=== PATIENT | male | born 1950 | race Caucasian/White ===

== ENCOUNTER 2016-12-16 20:10 | Emergency (ER) | payer MEDICARE, OTHER ==
[2016-12-16 20:36] LABS: BILIRUBIN,URINE NEGATIVE (NEGATIVE)
[2016-12-16 20:43] LABS: UA w/ MICROSCOPIC CHARGE YES
[2016-12-16 20:46] LABS: UR CULTURE IF IND NOT INDICATED; WBC,URINE 0-3 /HPF (0-3)
--- NOTE | 2016-12-16 20:47 | ED Physician Documentation ---
PD HPI ABD PAIN - Stated complaint Stated Complaint: SIDE PX - Chief complaint Chief Complaint: Abd Pain - History obtained from History obtained from: Patient - History of Present Illness Timing - onset: How many hours ago (6), Today Pain level max: 7 Pain level now: 7 Quality: Aching, Dull, Pain Location: RLQ Radiation: Other (nonradiating) Improved by: Other (nothing) Worsened by: Other (nothing) Associated symptoms: No: Fever, Vomiting, Hematemesis, Diarrhea, Constipation, Melena, Hematochezia, Dysuria, Hematuria Similar symptoms before: Has not had sx before Recently seen: Not recently seen Review of Systems Ten Systems: 10 systems reviewed and negative Constitutional: denies: Fever, Chills Nose: denies: Rhinorrhea / runny nose, Congestion Throat: denies: Sore throat Respiratory: denies: Cough GI: denies: Nausea, Vomiting, Diarrhea, Hematemesis, Bloody / black stool Skin: denies: Rash Musculoskeletal: denies: Neck pain, Back pain Neurologic: denies: Headache PD PAST MEDICAL HISTORY - Past Medical History Past Medical History: Yes HEENT: Glaucoma - Past Surgical History Past Surgical History: No - Present Medications Home Medications: Ambulatory Orders Medication Instructions Recorded Confirmed Atorvastatin [Lipitor] 1 tab PO DAILY 12/16/16 12/16/16 Hydrocodone/Acetaminophen 1 - 2 each PO Q6H PRN #14 tablet 12/16/16 [Hydrocodon-Acetaminophen 5-325] Ibuprofen [Motrin] 800 mg PO Q8H PRN #30 tablet 12/16/16 Latanoprost 0.005% Ophth Drops 1 drops EACHEYE DAILY 12/16/16 12/16/16 [Xalatan Ophth Drops] Ondansetron Odt [Zofran] 4 mg TL Q6H PRN #10 tablet 12/16/16 Timolol 0.5% Ophth Drops [Timoptic 1 drops OPTH BID 12/16/16 12/16/16 0.5% Ophth Drops] - Allergies Allergies/Adverse Reactions: Allergies Allergy/AdvReac Type Severity Reaction Status Date / Time pistachio nut Allergy Unknown Verified 12/16/16 20:16 - Living Situation Living Arrangement: reports: At home - Social History Does the pt smoke?: No Smoking Status: Never smoker Does the pt drink ETOH?: Yes ETOH Use: Beer Does the pt have substance abuse?: No - Immunizations Immunizations are current?: Yes PD ED PE NORMAL - Vitals Vital signs reviewed: Yes - General General: Alert and oriented X 3, No acute distress - HEENT HEENT: Moist mucous membranes - Cardiac Cardiac: RRR, Strong equal pulses - Respiratory Respiratory: No respiratory distress, Clear bilaterally - Abdomen Abdomen: Soft, Non distended, Other (Mild tenderness palpation right lower quadrant. No peritoneal signs.) - Back Back: No CVA TTP, No spinal TTP - Derm Derm: Warm and dry, No rash - Extremities Extremities: No edema - Neuro Neuro: Alert and oriented X 3 - Psych Psych: Normal mood, Normal affect Results - Vitals Vitals: Vital Signs - 24 hr 12/16/16 12/17/16 20:11 00:07 Temperature 36.5 C Heart Rate 61 74 Respiratory 18 16 Rate Blood Pressure 176/101 H 144/89 H O2 Saturation 96 97 Oxygen O2 Source Room air - Labs Labs: Laboratory Tests 12/16/16 12/16/16 12/16/16 20:23 20:45 20:45 WBC 11.0 H RBC 5.06 Hgb 15.4 Hct 46.1 MCV 91.0 MCH 30.5 MCHC 33.5 RDW 13.4 Plt Count 197 MPV 7.5 Neut # 9.3 H Lymph # 0.7 L Phelps # 0.9 Eos # 0.1 Baso # 0.1 Absolute Nucleated RBC 0.01 Nucleated RBCs 0.1 Sodium 139 Potassium 3.9 Chloride 106 Carbon Dioxide 23 Anion Gap 10.0 BUN 20 Creatinine 1.1 Estimated GFR (MDRD) 67 L Glucose 119 H Calcium 9.2 Total Bilirubin 0.8 AST 30 ALT 32 Alkaline Phosphatase 73 Total Protein 7.5 Albumin 4.6 Globulin 2.9 Albumin/Globulin Ratio 1.6 Lipase 20 L Urine Color YELLOW Urine Clarity CLEAR Urine pH 5.0 Ur Specific [place] >=1.030 H Urine Protein NEGATIVE Urine Glucose (UA) NEGATIVE Urine Ketones NEGATIVE Urine Occult Blood LARGE H Urine Nitrite NEGATIVE Urine Bilirubin NEGATIVE Urine Urobilinogen 0.2 (NORMAL) Ur Leukocyte Esterase NEGATIVE Urine RBC TNTC H Urine WBC 0-3 Ur Squamous Epith Cells RARE Squamous Urine Bacteria Few Ur Microscopic Review INDICATED Urine Culture Comments NOT INDICATED - Rads (name of study) CT abd/pelvis Radiology: Prelim report reviewed, EMP read contemporaneously, See rad report ( Obstructing 4 x 5 x 7 mm right UVJ stone with right hydronephrosis, hydroureter , and perinephric fat stranding. No intrarenal stones. 2. Advanced diverticulosis without diverticulitis. 3. Normal appendix noted. 4. Small calcified gallstone noted. ) PD MEDICAL DECISION MAKING - ED course Complexity details: reviewed results, re-evaluated patient, considered differential, d/w patient ED course: Patient is a 66-year-old gentleman who presents to the emergency department with abdominal pain. Appears to have a right UVJ stone with hydronephrosis. He is well-appearing, nontoxic. Afebrile. No evidence of UTI or pyelonephritis. Pain well controlled with Toradol. Will place on pain medication for home and follow-up with his doctor. Patient counseled regarding signs and symptoms for which I believe and urgent re-evaluation would be necessary. Patient with good understanding of and agreement to plan and is comfortable going home at this time This document was made in part using voice recognition software. While efforts are made to proofread this document, sound alike and grammatical errors may occur. Departure - Departure Disposition: 01 Home, Self Care Clinical Impression: Ureteral stone Condition: Good Instructions: ED Stone Renal W Colic Follow-Up: Nghia Szymanski MD [Primary Care Provider] - Within 1 week Prescriptions: Hydrocodone/Acetaminophen [Hydrocodon-Acetaminophen 5-325] 1 - 2 each PO Q6H PRN #14 tablet PRN Reason: pain Ibuprofen [Motrin] 800 mg PO Q8H PRN #30 tablet PRN Reason: PAIN &/OR FEVER Ondansetron Odt [Zofran] 4 mg TL Q6H PRN #10 tablet PRN Reason: Nausea / Vomiting Comments: return if you worsen. This should improve over the next few days. Drink plenty of water. Return immediately for any fevers, vomiting or uncontrolled pain. Do not drink alcohol or drive while on narcotic pain medicine. Note that many narcotic pain relievers also contain tylenol/acetaminophen. Please ensure that your total dose of acetaminophen from all sources does not exceed 3 grams (3000mg) per day. You may constipated on this medication, take a stool softener such as "Colace" twice a day while you are on it. Also recommend a [id number] laxative such as senna or MiraLAX any day that you do not have a bowel movement. If you received narcotic pain medication in the emergency department, do not drive or operate machinery for the next 24 hours. Discharge Date/Time: 12/17/16 00:12
[2016-12-16 20:54] LABS: BASOPHILS # (AUTO) 0.1 10^3/uL (0.0-0.1); BASOPHILS % (AUTO) 0.5 %; EOSINOPHILS # (AUTO) 0.1 10^3/uL (0.0-0.7); EOSINOPHILS % (AUTO) 0.6 %; HCT - HEMATOCRIT 46.1 % (42.0-52.0); HGB - HEMOGLOBIN 15.4 g/dL (14.0-18.0); LYMPHOCYTES # (AUTO) 0.7 10^3/uL (1.5-3.5); LYMPHOCYTES % (AUTO) 6.6 %; MEAN CORPUSCULAR HEMOGLOBIN 30.5 pg (27.0-31.0); MEAN CORPUSCULAR HGB CONC 33.5 g/dL (32.0-36.0); MEAN PLATELET VOLUME 7.5 fL (7.4-11.4); MONOCYTES # (AUTO) 0.9 10^3/uL (0.0-1.0); MONOCYTES % (AUTO) 8.2 %; NEUTROPHILS # (AUTO) 9.3 10^3/uL (1.5-6.6); NEUTROPHILS % (AUTO) 84.1 %; NUCLEATED RED BLOOD CELLS AUTO 0.1 /100WBC; RED BLOOD COUNT 5.06 10^6/uL (4.70-6.10); RED CELL DISTRIBUTION WIDTH 13.4 % (12.0-15.0)
[2016-12-16 21:10] LABS: ALBUMIN/GLOBULIN RATIO 1.6 (1.0-2.2); BILIRUBIN,TOTAL 0.8 mg/dL (0.2-1.0); CALCIUM 9.2 mg/dL (8.5-10.3); CREATININE 1.1 mg/dL (0.6-1.2); POTASSIUM 3.9 mmol/L (3.5-5.0); TOTAL PROTEIN 7.5 g/dL (6.7-8.2)
[2016-12-16] MEDS ORDERED: IOPAMIDOL-300 100 ML VIAL IVP ONE (22:40)
--- NOTE | 2016-12-16 23:35 | CT Preliminary Report ---
Exam: CT Abdomen/Pelvis W/ IMPRESSION: 1. Obstructing 4 x 5 x 7 mm right UVJ stone with right hydronephrosis, hydroureter, and perinephric f at stranding. No intrarenal stones. 2. Advanced diverticulosis without diverticulitis. 3. Normal appendix noted. 4. Small calcified gallstone noted. [facility] SITE ID: [id number]
--- NOTE | 2016-12-16 23:37 | CT Report ---
EXAM: CT ABDOMEN AND PELVIS EXAM DATE: 12/16/2016 10:43 PM. CLINICAL HISTORY: RLQ pain. COMPARISONS: None. TECHNIQUE: Routine helical CT imaging was performed through the abdomen and pelvis. IV contrast: Amt/ type. Enteric contrast: No. Reconstructions: Coronal and sagittal. In accordance with CT protocol optimization, one or more of the following dose reduction techniques w ere utilized for this exam: automated exposure control, adjustment of mA and/or KV based on patient s ize, or use of iterative reconstructive technique. FINDINGS: Lung Bases: Unremarkable. Liver: Normal. No masses. Gallbladder/Bile Ducts: Small calcified gallstone. No ductal dilatation. Spleen: Normal. Pancreas: Normal. Adrenal Glands: Normal. Kidneys: Obstructing 4 x 5 x 7 mm right UVJ stone with right hydronephrosis, hydroureter, perinephric fat stranding, and delay in enhancement. Unremarkable left kidney and ureter. Peritoneal Cavity/Bowel: Advanced diverticulosis. No free fluid, free air or adenopathy. No masses or acute inflammatory process. The appendix is well visualized and normal. Pelvic Organs: Normal. The bladder and visualized pelvic organs are within normal limits. Vasculature: No aneurysms or other significant abnormality. Bones: Advanced facet arthropathy at L4-L5. Other: Bilateral fat-containing inguinal hernias, left greater than right.. IMPRESSION: 1. Obstructing 4 x 5 x 7 mm right UVJ stone with right hydronephrosis, hydroureter, and perinephric f at stranding. No intrarenal stones. 2. Advanced diverticulosis without diverticulitis. 3. Normal appendix noted. 4. Small calcified gallstone noted. [facility] Referring Provider Line: [phone] SITE ID: [id number]
[2016-12-16] MEDS ORDERED: KETOROLAC 60 MG/2 ML VIAL IVP STA (23:49)
[2016-12-17] MEDS ORDERED: KETOROLAC 30 MG/ML VIAL ONE (00:03)
[2016-12-17 00:08] VITALS: BP 144/89
== END 2016-12-17 00:12 | disposition home or self-care (01) ==
LOC: ED 20:10
DX: N13.2 Hydronephrosis with renal and ureteral calculous obstruction (principal); K57.90 Diverticulosis of intestine, part unspecified, without perforation or abscess without bleeding
CPT/HCPCS: 36415; 74177; 80053; 81001; 83690; 85025; 96374; 99283; 99284; Q9967; 81003; 87086

== ENCOUNTER 2017-06-15 15:00 | Emergency (ER) | payer MEDICARE, OTHER ==
[2017-06-15 15:07] VITALS: BP 178/114
[2017-06-15] MEDS ORDERED: BUFFERED LIDOCAINE 10 ML SYRINGE SUBQ STA (15:53)
[2017-06-15] MEDS ORDERED: TETANUS/DIPHTHERIA/PERTUSSIS 0.5 ML SYRINGE IM ONE (15:53)
[2017-06-15] MEDS ORDERED: BUFFERED LIDOCAINE 10 ML SYRINGE ONE (16:00)
--- NOTE | 2017-06-15 16:21 | ED Physician Documentation ---
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 Tetanus is unknown.) Review of Systems Constitutional: reports: Reviewed and negative Nose: reports: Reviewed and negative Cardiac: reports: Reviewed and negative Respiratory: reports: Reviewed and negative PD PAST MEDICAL HISTORY - Past Medical History Past Medical History: Yes HEENT: Glaucoma - Past Surgical History Past Surgical History: Yes HEENT: Tonsil/Adenoidectomy - Present Medications Home Medications: Ambulatory Orders Medication Instructions Recorded Confirmed Atorvastatin [Lipitor] 1 tab PO DAILY 12/16/16 12/16/16 Hydrocodone/Acetaminophen 1 - 2 each PO Q6H PRN #14 tablet 12/16/16 [Hydrocodon-Acetaminophen 5-325] Ibuprofen [Motrin] 800 mg PO Q8H PRN #30 tablet 12/16/16 Latanoprost 0.005% Ophth Drops 1 drops EACHEYE DAILY 12/16/16 12/16/16 [Xalatan Ophth Drops] Ondansetron Odt [Zofran] 4 mg TL Q6H PRN #10 tablet 12/16/16 Timolol 0.5% Ophth Drops [Timoptic 1 drops OPTH BID 12/16/16 12/16/16 0.5% Ophth Drops] - Allergies Allergies/Adverse Reactions: Allergies Allergy/AdvReac Type Severity Reaction Status Date / Time pistachio nut Allergy Unknown Verified 06/15/17 15:07 - Social History Does the pt smoke?: No Smoking Status: Never smoker Does the pt drink ETOH?: Yes ETOH Use: Wine Does the pt have substance abuse?: No - Immunizations Immunizations are current?: Yes - POLST Patient has POLST: No PD ED PE NORMAL - Vitals Vital signs reviewed: Yes - General General: Alert and oriented X 3, No acute distress - HEENT HEENT: Other (There is a very deep 3 cm jagged laceration over the left anterior mandible that does not extend intraorally and there are no loose teeth. He does have some tenderness especially over the right TMJ.) - Neck Neck: Supple, no meningeal sign, No bony TTP - Neuro Neuro: Alert and oriented X 3, Normal speech Eye Opening: Spontaneous Motor: Obeys Commands Verbal: Oriented GCS Score: 15 - Psych Psych: Normal mood, Normal affect Results - Vitals Vitals: Vital Signs - 24 hr 06/15/17 15:04 Temperature 36.7 C Heart Rate 97 Respiratory 18 Rate Blood Pressure 178/114 H O2 Saturation 100 Oxygen O2 Source Room air - Rads (name of study) CT of the face Radiology: EMP read contemporaneously (No facial bony fracture) Procedures - Laceration (location) face Length in cm: 3 Wound type: Stellate, Irregular Neurovascular status: Sensory intact, Motor intact Anesthesia: Lidocaine 1%, With bicarb Wound Preparation: Irrigated copiously NS Deep layer closure: Vicryl, size #-0 - enter number (5-0), # sutures - enter number (2) Skin layer closure: Nylon, Interrupted, Size #-0 - enter number (5-0) Other: Patient tolerated well, No complications, Neurovascular intact, Tetanus booster given Complexity: Intermediate Departure - Departure Disposition: 01 Home, Self Care Clinical Impression: Facial laceration Qualifiers: Encounter type: initial encounter Qualified Code(s): S01.81XA - Laceration without foreign body of other part of head, initial encounter Facial contusion Qualifiers: Encounter type: initial encounter Qualified Code(s): S00.83XA - Contusion of other part of head, initial encounter Condition: Good Record reviewed to determine appropriate education?: Yes Instructions: ED Laceration All Comments: Come back for any signs of infection which would include: Redness, swelling, drainage, increased pain, or fevers. Follow-up with your physician in 6 days for suture removal. Your blood pressure was elevated today on check into the emergency department. This does not mean that you have hypertension, it is a common phenomenon to come to the emergency department and have elevated blood pressure. I recommend that you see your primary care physician within the week to have it rechecked when you are feeling better.
[2017-06-15] MEDS ORDERED: BACITRACIN OINT TOP STA (16:41)
--- NOTE | 2017-06-15 17:00 | CT Preliminary Report ---
Exam: CT FACIAL BONES W/O IMPRESSION: Moderate to severe chin and left jaw soft tissue contusions. No evidence for acute fractu re. [facility] SITE ID: [id number]
--- NOTE | 2017-06-15 17:01 | CT Report ---
EXAM: CT MAXILLOFACIAL WITHOUT CONTRAST EXAM DATE: 06/15/2017 04:31 PM. CLINICAL HISTORY: Jaw injury. Got hit in the mandible with baseball. Laceration. COMPARISONS: None. TECHNIQUE: Thin-section axial images were acquired of the face without contrast. Post-processing: Cor onal and sagittal reformats. Other: None. In accordance with CT protocol optimization, one or more of the following dose reduction techniques w ere utilized for this exam: automated exposure control, adjustment of mA and/or KV based on patient s ize, or use of iterative reconstructive technique. FINDINGS: Soft Tissue: Moderate to severe chin and left jaw soft tissue contusions. Orbits: Symmetric and unremarkable. Bones: No evidence for acute fracture. Temporomandibular Joints: No dislocation. Sinuses: Within normal limits. Dental metal artifact limited. IMPRESSION: Moderate to severe chin and left jaw soft tissue contusions. No evidence for acute fractu re. [facility] Referring Provider Line: [phone] SITE ID: [id number]
== END 2017-06-15 17:05 | disposition home or self-care (01) ==
LOC: ED 15:00
DX: S01.81XA Laceration without foreign body of other part of head, initial encounter (principal); W21.07XA Struck by softball, initial encounter; Y93.64 Activity, baseball; Y92.320 Baseball field as the place of occurrence of the external cause; R03.0 Elevated blood-pressure reading, without diagnosis of hypertension; Z23 Encounter for immunization
CPT/HCPCS: 12013; 70486; 90471; 90715; 99283; A9270

== ENCOUNTER 2017-09-23 09:15 | Outpatient (CLI) | payer MEDICARE, OTHER ==
[2017-09-23 13:35] LABS: ALBUMIN 4.6 g/dL (3.2-5.5); ALBUMIN/GLOBULIN RATIO 1.7 (1.0-2.2); ALKALINE PHOSPHATASE 65 IU/L (42-121); ALT ALANINE AMINOTRANSFERASE 37 IU/L (10-60); AST ASPARTATE AMINOTRANSFERASE 31 IU/L (10-42); BILIRUBIN,TOTAL 0.7 mg/dL (0.2-1.0); BUN - BLOOD UREA NITROGEN 20 mg/dL (6-20); CARBON DIOXIDE - CO2 27 mmol/L (21-32); CHLORIDE 104 mmol/L (101-111); CHOL/HDL RATIO 3.9 (<5.0); CHOLESTEROL 163 mg/dL; CREATININE 0.7 mg/dL (0.6-1.2); GFR - MDRD 112 (>89); GLUCOSE 94 mg/dL (70-100); HDL CHOLESTEROL 42 mg/dL; LDL CHOLESTEROL,CALCULATED 102 mg/dL; LDL/HDL RATIO 2.4 (<3.6); SODIUM 135 mmol/L (135-145); TOTAL PROTEIN 7.3 g/dL (6.7-8.2); VLDL CHOLESTEROL 19 mg/dL
[2017-09-23 13:54] LABS: HB2 TOTAL 17.7 g/dL; HEMOGLOBIN A1C 0.64 g/dL; HEMOGLOBIN A1C % 5.5 % (4.6-6.2)
[2017-09-24 13:57] LABS: HEPATITIS C ANTIBODY NON-REACTIVE (NON-REACTIVE)
== END 2017-09-23 09:16 | disposition home or self-care (01) ==
LOC: LAB.R 09:15
PROVIDERS: ATTEND Internal Medicine
DX: E78.5 Hyperlipidemia, unspecified (principal); R73.9 Hyperglycemia, unspecified; H40.9 Unspecified glaucoma; Z72.89 Other problems related to lifestyle
CPT/HCPCS: 80053; 80061; 83036; 83721; 86317; 86803

== ENCOUNTER 2019-12-16 07:32 | Outpatient (CLI) | payer MEDICARE, OTHER ==
[2019-12-16 08:10] LABS: BASOPHILS # (AUTO) 0.1 10^3/uL (0.0-0.1); BASOPHILS % (AUTO) 1.5 %; EOSINOPHILS # (AUTO) 0.2 10^3/uL (0.0-0.7); EOSINOPHILS % (AUTO) 3.6 %; HGB - HEMOGLOBIN 15.5 g/dL (14.0-18.0); LYMPHOCYTES # (AUTO) 1.2 10^3/uL (1.5-3.5); LYMPHOCYTES % (AUTO) 25.2 %; MEAN CORPUSCULAR HEMOGLOBIN 30.2 pg (27.0-31.0); MEAN CORPUSCULAR VOLUME 94.2 fL (80.0-94.0); MEAN PLATELET VOLUME 9.2 fL (7.4-11.4); MONOCYTES # (AUTO) 0.6 10^3/uL (0.0-1.0); MONOCYTES % (AUTO) 11.5 %; NEUTROPHILS # (AUTO) 2.8 10^3/uL (1.5-6.6); NEUTROPHILS % (AUTO) 57.8 %; PLT - PLATELET COUNT 217 10^3/uL (130-450); RED BLOOD COUNT 5.14 10^6/uL (4.70-6.10); RED CELL DISTRIBUTION WIDTH 12.5 % (12.0-15.0); WHITE BLOOD COUNT 4.8 x10^3/uL (4.8-10.8)
[2019-12-16 08:16] LABS: ALBUMIN 4.7 g/dL (3.2-5.5); ALBUMIN/GLOBULIN RATIO 1.6 (1.0-2.2); ALKALINE PHOSPHATASE 66 IU/L (42-121); ALT ALANINE AMINOTRANSFERASE 31 IU/L (10-60); AST ASPARTATE AMINOTRANSFERASE 26 IU/L (10-42); BILIRUBIN,TOTAL 0.9 mg/dL (0.2-1.0); BUN - BLOOD UREA NITROGEN 20 mg/dL (6-20); CALCIUM 9.1 mg/dL (8.5-10.3); CARBON DIOXIDE - CO2 28 mmol/L (21-32); CHLORIDE 106 mmol/L (101-111); CHOL/HDL RATIO 4.8 (<5.0); CHOLESTEROL 221 mg/dL; CREATININE 0.8 mg/dL (0.6-1.2); GLUCOSE 115 mg/dL (70-100); HDL CHOLESTEROL 46 mg/dL; LDL CHOLESTEROL,CALCULATED 157 mg/dL; LDL/HDL RATIO 3.4 (<3.6); SODIUM 138 mmol/L (135-145); TOTAL PROTEIN 7.6 g/dL (6.7-8.2); VLDL CHOLESTEROL 18 mg/dL
== END 2019-12-16 07:33 | disposition home or self-care (01) ==
LOC: LAB 07:32
PROVIDERS: ATTEND Family Medicine
DX: I10 Essential (primary) hypertension (principal); R73.9 Hyperglycemia, unspecified; H40.9 Unspecified glaucoma; E78.5 Hyperlipidemia, unspecified
CPT/HCPCS: 36415; 80053; 80061; 83721; 84443; 85025

== ENCOUNTER 2020-01-31 08:41 | Day surgery (SDC) | payer MEDICARE, OTHER ==
[2020-01-31] MEDS ORDERED: LACTATED RINGERS 1,000 ML IV ONE (08:49)
[2020-01-31] MEDS ORDERED: fentaNYL 250 MCG/5 ML VIAL IVP ONE (10:53)
[2020-01-31] MEDS ORDERED: MIDAZOLAM 2 MG/2 ML VIAL IVP ONE (10:53)
[2020-01-31] MEDS ORDERED: LACTATED RINGERS 200 ML IV ONE (11:23)
[2020-01-31 12:02] VITALS: BP 111/82
== END 2020-01-31 08:42 | disposition home or self-care (01) ==
LOC: SDS 08:41
PROVIDERS: ATTEND Internal Medicine Gastroenterology
DX: Z12.11 Encounter for screening for malignant neoplasm of colon (principal); K57.30 Diverticulosis of large intestine without perforation or abscess without bleeding; I10 Essential (primary) hypertension; E78.5 Hyperlipidemia, unspecified; H40.9 Unspecified glaucoma
CPT/HCPCS: G0121; J3010; J7120

== ENCOUNTER 2020-12-20 07:45 | Outpatient (CLI) | payer MEDICARE, OTHER ==
[2020-12-20 08:51] LABS: BASOPHILS % (AUTO) 0.9 %; EOSINOPHILS # (AUTO) 0.2 10^3/uL (0.0-0.7); EOSINOPHILS % (AUTO) 3.9 %; HGB - HEMOGLOBIN 15.6 g/dL (14.0-18.0); LYMPHOCYTES # (AUTO) 1.4 10^3/uL (1.5-3.5); LYMPHOCYTES % (AUTO) 31.8 %; MEAN CORPUSCULAR HEMOGLOBIN 31.2 pg (27.0-31.0); MEAN CORPUSCULAR HGB CONC 33.9 g/dL (32.0-36.0); MEAN PLATELET VOLUME 8.5 fL (7.4-11.4); MONOCYTES # (AUTO) 0.5 10^3/uL (0.0-1.0); MONOCYTES % (AUTO) 11.2 %; NEUTROPHILS # (AUTO) 2.3 10^3/uL (1.5-6.6); NEUTROPHILS % (AUTO) 52.2 %; PLT - PLATELET COUNT 173 10^3/uL (130-450); RED CELL DISTRIBUTION WIDTH 12.4 % (12.0-15.0); WHITE BLOOD COUNT 4.4 x10^3/uL (4.8-10.8)
[2020-12-20 09:17] LABS: ALBUMIN 4.4 g/dL (3.2-5.5); ALBUMIN/GLOBULIN RATIO 1.6 (1.0-2.2); ALKALINE PHOSPHATASE 59 IU/L (42-121); ALT ALANINE AMINOTRANSFERASE 30 IU/L (10-60); AST ASPARTATE AMINOTRANSFERASE 28 IU/L (10-42); BILIRUBIN,TOTAL 1.2 mg/dL (0.2-1.0); BUN - BLOOD UREA NITROGEN 22 mg/dL (6-20); CALCIUM 9.6 mg/dL (8.5-10.3); CARBON DIOXIDE - CO2 30 mmol/L (21-32); CHLORIDE 104 mmol/L (101-111); CHOL/HDL RATIO 5.2 (<5.0); CHOLESTEROL 254 mg/dL; CREATININE 0.8 mg/dL (0.6-1.2); GFR - MDRD 95 (>89); GLUCOSE 101 mg/dL (70-100); HDL CHOLESTEROL 49 mg/dL; LDL CHOLESTEROL,CALCULATED 189 mg/dL; LDL/HDL RATIO 3.9 (<3.6); POTASSIUM 4.4 mmol/L (3.5-5.0); SODIUM 142 mmol/L (135-145); TOTAL PROTEIN 7.2 g/dL (6.7-8.2); TRIGLYCERIDES 82 mg/dL; VLDL CHOLESTEROL 16 mg/dL
[2020-12-20 09:27] LABS: THYROID STIMULATING HORMONE 1.91 uIU/mL (0.34-5.60)
== END 2020-12-20 07:46 | disposition home or self-care (01) ==
LOC: LAB 07:45
PROVIDERS: ATTEND Family Medicine
DX: I10 Essential (primary) hypertension (principal)
CPT/HCPCS: 36415; 80053; 80061; 83721; 84443; 85025

== ENCOUNTER 2022-02-25 08:43 | Outpatient (CLI) | payer MEDICARE, OTHER ==
[2022-02-25 08:58] LABS: BASOPHILS # (AUTO) 0.1 10^3/uL (0.0-0.1); BASOPHILS % (AUTO) 0.9 %; EOSINOPHILS # (AUTO) 0.2 10^3/uL (0.0-0.7); HCT - HEMATOCRIT 46.5 % (42.0-52.0); HGB - HEMOGLOBIN 15.5 g/dL (14.0-18.0); LYMPHOCYTES # (AUTO) 1.3 10^3/uL (1.5-3.5); LYMPHOCYTES % (AUTO) 19.2 %; MEAN CORPUSCULAR HEMOGLOBIN 30.7 pg (27.0-31.0); MEAN CORPUSCULAR HGB CONC 33.3 g/dL (32.0-36.0); MEAN CORPUSCULAR VOLUME 92.1 fL (80.0-94.0); MEAN PLATELET VOLUME 8.6 fL (7.4-11.4); MONOCYTES # (AUTO) 0.7 10^3/uL (0.0-1.0); MONOCYTES % (AUTO) 10.6 %; NEUTROPHILS # (AUTO) 4.5 10^3/uL (1.5-6.6); NEUTROPHILS % (AUTO) 66.2 %; PLT - PLATELET COUNT 219 10^3/uL (130-450); RED BLOOD COUNT 5.05 10^6/uL (4.70-6.10); RED CELL DISTRIBUTION WIDTH 12.4 % (12.0-15.0); WHITE BLOOD COUNT 6.7 x10^3/uL (4.8-10.8)
[2022-02-25 09:21] LABS: ALBUMIN 4.2 g/dL (3.2-5.5); ALBUMIN/GLOBULIN RATIO 1.3 (1.0-2.2); ALKALINE PHOSPHATASE 62 IU/L (42-121); ALT ALANINE AMINOTRANSFERASE 28 IU/L (10-60); AST ASPARTATE AMINOTRANSFERASE 23 IU/L (10-42); BUN - BLOOD UREA NITROGEN 28 mg/dL (6-20); CALCIUM 9.6 mg/dL (8.5-10.3); CARBON DIOXIDE - CO2 31 mmol/L (21-32); CHLORIDE 107 mmol/L (101-111); CHOL/HDL RATIO 4.4 (<5.0); CHOLESTEROL 211 mg/dL; CREATININE 0.8 mg/dL (0.6-1.2); GFR - MDRD 95 (>89); GLUCOSE 107 mg/dL (70-100); HDL CHOLESTEROL 48 mg/dL; LDL CHOLESTEROL,CALCULATED 149 mg/dL; LDL/HDL RATIO 3.1 (<3.6); POTASSIUM 4.5 mmol/L (3.5-5.0); SODIUM 145 mmol/L (135-145); TOTAL PROTEIN 7.4 g/dL (6.7-8.2); TRIGLYCERIDES 71 mg/dL; VLDL CHOLESTEROL 14 mg/dL
[2022-02-25 09:31] LABS: THYROID STIMULATING HORMONE 1.74 uIU/mL (0.34-5.60)
== END 2022-02-25 08:44 | disposition home or self-care (01) ==
LOC: LAB 08:43
PROVIDERS: ATTEND Family Medicine
DX: I10 Essential (primary) hypertension (principal)
CPT/HCPCS: 36415; 80053; 80061; 83721; 84443; 85025

== ENCOUNTER 2023-03-24 08:27 | Outpatient (CLI) | payer MEDICARE, OTHER ==
[2023-03-24 08:44] LABS: BASOPHILS # (AUTO) 0.1 10^3/uL (0.0-0.1); EOSINOPHILS # (AUTO) 0.2 10^3/uL (0.0-0.7); EOSINOPHILS % (AUTO) 3.4 %; HCT - HEMATOCRIT 49.8 % (42.0-52.0); HGB - HEMOGLOBIN 16.3 g/dL (14.0-18.0); LYMPHOCYTES # (AUTO) 1.4 10^3/uL (1.5-3.5); LYMPHOCYTES % (AUTO) 23.3 %; MEAN CORPUSCULAR HEMOGLOBIN 30.5 pg (27.0-31.0); MEAN CORPUSCULAR HGB CONC 32.7 g/dL (32.0-36.0); MEAN CORPUSCULAR VOLUME 93.3 fL (80.0-94.0); MEAN PLATELET VOLUME 8.7 fL (7.4-11.4); MONOCYTES # (AUTO) 0.6 10^3/uL (0.0-1.0); MONOCYTES % (AUTO) 9.6 %; NEUTROPHILS # (AUTO) 3.7 10^3/uL (1.5-6.6); NEUTROPHILS % (AUTO) 62.5 %; PLT - PLATELET COUNT 204 10^3/uL (130-450); RED BLOOD COUNT 5.34 10^6/uL (4.70-6.10); RED CELL DISTRIBUTION WIDTH 12.4 % (12.0-15.0)
[2023-03-24 09:02] LABS: ALBUMIN 4.7 g/dL (3.2-5.5); ALBUMIN/GLOBULIN RATIO 1.9 (1.0-2.2); ALKALINE PHOSPHATASE 66 IU/L (42-121); ALT ALANINE AMINOTRANSFERASE 30 IU/L (10-60); AST ASPARTATE AMINOTRANSFERASE 24 IU/L (10-42); BILIRUBIN,TOTAL 0.9 mg/dL (0.2-1.0); BUN - BLOOD UREA NITROGEN 24 mg/dL (6-20); CALCIUM 9.5 mg/dL (8.5-10.3); CARBON DIOXIDE - CO2 30 mmol/L (21-32); CHLORIDE 106 mmol/L (101-111); CHOL/HDL RATIO 4.8 (<5.0); CHOLESTEROL 241 mg/dL; CREATININE 0.8 mg/dL (0.6-1.3); GFR - MDRD 95 (>89); GLUCOSE 101 mg/dL (74-104); HDL CHOLESTEROL 50 mg/dL; LDL CHOLESTEROL,CALCULATED 166 mg/dL; LDL/HDL RATIO 3.3 (<3.6); POTASSIUM 4.5 mmol/L (3.5-4.5); SODIUM 138 mmol/L (135-145); TOTAL PROTEIN 7.2 g/dL (6.4-8.9); TRIGLYCERIDES 125 mg/dL (48-352); VLDL CHOLESTEROL 25 mg/dL
[2023-03-24 09:14] LABS: THYROID STIMULATING HORMONE 2.21 uIU/mL (0.34-5.60)
[2023-03-24 09:38] LABS: ESTIMATED AVERAGE GLUCOSE 105 mg/dL (70-100); HEMOGLOBIN A1c% 5.3 % (4.27-6.07)
== END 2023-03-24 08:28 | disposition home or self-care (01) ==
LOC: LAB 08:27
PROVIDERS: ATTEND Family Medicine
DX: I10 Essential (primary) hypertension (principal); E78.5 Hyperlipidemia, unspecified; R73.9 Hyperglycemia, unspecified
CPT/HCPCS: 36415; 80053; 80061; 83036; 83721; 84153; 84443; 85025